=== PATIENT | male | born 1945 | race Caucasian/White ===

== ENCOUNTER 2016-10-26 06:34 | Inpatient (IN) | payer OTHER ==
[2016-10-08 13:36] VITALS: BMI 35.0
--- NOTE | 2016-10-08 14:19 | PAT Medication Instructions ---
Service Date October 08, 2016. Current Home Medication List Aspirin (Aspirin Ec), 81 MG PO QPM Cholecalciferol (Vitamin D3), 1 TAB PO QAM Simvastatin (Zocor), 20 MG PO QPM Terazosin Hcl (Hytrin), 2 MG PO QPM Tramadol (Ultram), 50 MG PO Q8H PRN for Pain [Salpalmeto ], 1 TAB PO BID Medication Instructions For Your Scheduled Surgery - Hold the following medications 2 weeks prior to surgery: Saw [place] 1 TAB PO BID - Hold the following medications the morning of surgery: Cholecalciferol (Vitamin D3), 1 TAB PO QAM - Take the following medications the morning of surgery with a sip of water: Tramadol (Ultram), 50 MG PO Q8H PRN for Pain (can take up to four hours prior to surgery if needed) - Take the following medications as scheduled the night before surgery: Tramadol (Ultram), 50 MG PO Q8H PRN for Pain Simvastatin (Zocor), 20 MG PO QPM Terazosin Hcl (Hytrin), 2 MG PO QPM Aspirin (Aspirin Ec), 81 MG PO QPM If you have any questions please call us at [phone] or [phone] ( Amanda) or [phone]
--- NOTE | 2016-10-08 14:56 | DIAGNOSTIC IMAGING REPORT ---
CHEST PREADMISSION(PA/LAT) CLINICAL HISTORY: Preoperative evaluation. COMPARISON STUDY: No previous studies for comparison. FINDINGS: Lung volumes are normal. Lungs are clear. There is no pneumothorax or pleural effusion. Cardiac size is normal. Mediastinal contours are normal. There is no evidence of pulmonary edema. IMPRESSION: No acute cardiopulmonary findings. Electronically signed by: Ollie Jeffries M.D. 10/08/2016 2:55 PM Dictated Date/Time: 10/08/2016 2:55 PM
[2016-10-08 15:01] LABS: BASO % 0.4 %; BASO ABS # 0.04 K/uL (0-0.2); COMPLETE YES; EOS % 0.4 %; HEMATOCRIT 42.2 % (42-52); IG% 0.2 %; LYMPH % 12.6 %; LYMPH ABS # 1.35 K/uL (1.2-3.4); MEAN CORPUSCULAR HEMOGLOBIN 32.7 pg (25-34); MEAN CORPUSCULAR HGB CONC 34.8 g/dl (32-36); MEAN PLATELET VOLUME 9.3 fL (7.4-10.4); MONO % 3.1 %; NEUT % 83.3 %; PLATELET COUNT 295 K/uL (130-400); RED BLOOD COUNT 4.49 M/uL (4.7-6.1); WHITE BLOOD COUNT 10.74 K/uL (4.8-10.8)
[2016-10-08 15:04] LABS: URINE APPEARANCE CLEAR (CLEAR); URINE BILIRUBIN NEG (NEG); URINE COLOR YELLOW; URINE NITRITE NEG (NEG); URINE SPECIFIC GRAVITY 1.021 (1.000-1.030); UROBILINOGEN NEG (NEG); ZZUR CULT IF INDIC CLEAN CATCH NO
[2016-10-08 15:09] LABS: CREATININE 1.8 mg/dl (0.60-1.40)
[2016-10-08 15:22] LABS: PARTIAL THROMBOPLASTIN RATIO 1.1; PROTHROMBIN TIME (PATIENT) 11.1 SECONDS (9.0-12.0)
[2016-10-08 15:29] LABS: MANUAL MICROSCOPIC REQUIRED? NO; REVIEW REQ? NO
[2016-10-09 06:01] LABS: ESTIMATED AVERAGE GLUCOSE 114 mg/dl; HA1C FLAG Normal (Normal)
--- NOTE | 2016-10-19 10:32 | HISTORY & PHYSICAL EXAMINATION ---
DATE OF ADMISSION: 10/26/2016 SUBJECTIVE CHIEF COMPLAINT: Left knee pain. HISTORY OF PRESENT ILLNESS: The patient is a 71-year-old male who complains of left knee pain that is greater than right knee pain. He states that the pain is described as discomforting, dull and sharp at times. These symptoms have been chronic and nontraumatic in nature. He has difficulty ascending stairs, descending stairs, walking and squatting. He has failed conservative therapies of cortisone injections, nonsteroidal anti-inflammatories and physical therapy. He would like to proceed with a left total knee arthroplasty. PAST MEDICAL HISTORY: Significant for hypertension, hypercholesterolemia, obesity, osteoarthritis, BPH and brain aneurysm. PAST SURGICAL HISTORY: Bilateral carpal tunnel release, bilateral knee arthroscopies, right shoulder rotator cuff repair, left shoulder rotator cuff repair. SOCIAL HISTORY: Denies alcohol use. Denies smoking but does use dip or smokeless tobacco. Denies IV or illegal drug use. He lives in a 1-story house. He is currently retired. FAMILY HISTORY: Noncontributory. ALLERGIES: No known drug allergies. MEDICATIONS: Simvastatin 20 mg once daily, losartan 25 mg once daily, terazosin 2 mg daily. REVIEW OF SYSTEMS: He denies headaches, fevers, chills, double vision, blurry vision, sore throat, cough, chest pain, nausea, vomiting, diarrhea, constipation, numbness, tingling, tired, urinary difficulties, thoughts to harm himself or harm others and depression. He is positive for joint pain and joint stiffness of the left knee. OBJECTIVE: GENERAL APPEARANCE: The patient is a 70-year-old male that is sitting in no acute distress. He is well dressed, well nourished. He is awake, alert and oriented x3. VITAL SIGNS: He is 5 foot 9 inches tall, 245 pounds. Blood pressure is 130/80. HEAD, EYES, EARS, NOSE, AND THROAT: Normocephalic, atraumatic. Extraocular movements are intact. PERRLA. Mucosa was moist. No septal deviation. NECK: Supple with no lymphadenopathy, no JVD, no thyromegaly. HEART: Regular rate and rhythm with no murmurs or gallops. LUNGS: Clear to auscultation. No wheezing or rhonchi. ABDOMEN: Soft, nontender, nondistended. Normal bowel sounds, no hepatosplenomegaly. EXTREMITIES: Paying particular attention to the left lower extremity, he is able to extend his knee actively to 0 degrees and flex his knee to 100 degrees actively. He has medial joint line tenderness. His ligaments are intact. NEUROLOGIC EXAMINATION: Cranial nerves II-XII are intact. Pulses were compared bilaterally and were equal. IMAGING: X-rays of the left knee show bone on bone medial compartment with osteophyte formation of the medial femoral condyle and medial tibial plateau with subchondral sclerotic change. IMPRESSION: Left knee degenerative joint disease. PLAN: The patient is scheduled for a left total knee arthroplasty. He has failed conservative therapies which include cortisone injections, nonsteroidal anti-inflammatories and physical therapy. This affects his activities of daily living and he would like to proceed with a left total knee arthroplasty. Risks and benefits were discussed with the patient and included but not limited to infection, DVT, pain, stiffness, need for revision surgeries, damage to blood vessels, damage to nerves, PE and and anesthesia risks were all discussed with the patient and he wishes to proceed. All questions were answered to his satisfaction. DVT prophylaxis will be aspirin 81 mg b.i.d. On discharge he would like to go home with outpatient physical therapy. His postop appointment is 11/08/2016 at 11:15 a.m. NADIR
[~2016-10-26] VITALS: Ht 175.3 cm; Wt 109.5 kg
[2016-10-26] VITALS (8 sets, daily range): BP systolic 114–166; BP diastolic 57–87; PULSE 47–63; TEMP 36.5–36.8; O2SAT 93–100; Ht 175.3 cm; Wt 109.5 kg
[2016-10-26] MEDS: TRANEXAMIC ACID INJ 1,000 MG in SODIUM CHLORIDE 0.9% 100ML 100 ML IV SCH ×2 (06:30→08:18)
[~2016-10-26 06:34] MED LIST: ACETAMINOPHEN 500 MG TAB PO SCH; ASPI81TA28 PO; CEFAZOLIN 2000 MG/60 ML D5W 60 ML IV SCH; CeleBREX 200 MG CAP PO SCH; DEXAMETHASONE 4 MG TAB PO SCH; FAMOTIDINE 20 MG TAB PO SCH; GABAPENTIN 300 MG CAP PO SCH; HYT/2 PO; LACTATED RINGER'S 1000ML 1,000 ML IV SCH; METOCLOPRAMIDE HCL 10 MG TAB PO SCH; ROPIVACAINE 5MG/ML 30 ML 150 MG, BUPIVACAINE/EPINEPHR 0.5% MPF 30 ML, KETOROLAC TROMETH... INFIL SCH; SAW PALMETTO PO; SIMV20TA2 PO; TRAM-10 PO; VTMD1000 PO
--- NOTE | 2016-10-26 06:34 | History & Physical Bridge Note ---
H&P Re-Evaluation Bridge Note: I have examined the patient, reviewed the History & Physical and in the interval since the performance of the History & Physical I have noted the following changes of clinical significance: No changes noted
[2016-10-26] MEDS ORDERED: PROPOFOL IV EMULSION 10 MG/ML 20 ML VIAL IV ONE (07:31)
[2016-10-26] MEDS ORDERED: ONDANSETRON INJ 2 MG/ML 2 ML VIAL ONE (07:31)
[2016-10-26] MEDS ORDERED: FENTANYL CITRATE INJ 50 MCG/1 ML 2 ML VIAL ONE (07:32)
[2016-10-26] MEDS ORDERED: MIDAZOLAM HCL 1 MG/ML 2ML VIAL ONE (07:32)
[2016-10-26] MEDS ORDERED: BUPIVACAINE 0.5 % 5 MG/1 ML MPF 30ML VIAL ONE (07:42)
[2016-10-26] MEDS ORDERED: LIDOCAINE/EPINEPHRINE 1% 20 ML VIAL ONE (07:42)
[2016-10-26] MEDS ORDERED: ORTHO JOINT ANESTHETIC ONE (07:44)
[2016-10-26] MEDS ORDERED: BACITRACIN 50000 UNIT VIAL ONE (07:45)
[2016-10-26] MEDS ORDERED: POVIDONE-IODINE OP SOLN 30 ML BTL ONE (07:45)
[2016-10-26] MEDS ORDERED: BUPIVACAINE 0.25% 30 ML VIAL ONE (07:47)
[2016-10-26] MEDS ORDERED: BUPIVACAINE 0.5 % 5 MG/1 ML PF 10ML VIAL ONE (07:47)
[2016-10-26] MEDS ORDERED: LACTATED RINGER'S 1000ML 1,000 ML IV PRN (08:17)
[2016-10-26] MEDS ORDERED: ONDANSETRON INJ 2 MG/ML 2 ML VIAL IV PRN ×2 (08:30→10:45)
[2016-10-26] MEDS ORDERED: FENTANYL CITRATE INJ 50 MCG/1 ML 2 ML VIAL IV PRN (08:30)
--- NOTE | 2016-10-26 10:09 | [facility] Post Operative Brief Note ---
Immediate Operative Summary Operative Date Oct 26, 2016. Pre-Operative Diagnosis Left knee degenerative joint disease Post-Operative Diagnosis Left knee degenerative joint disease Procedure(s) Performed Left Total Knee Arthroplasty Surgeon Dr. Bismark Aguero Cleaning Staff Supervisor Surgeon(s) Andrez Celestin PA-C Estimated Blood Loss 20mL Findings above Specimens Specimen A. Left knee bone and tissue Drains 2 hemovac Anesthesia spinal Complication(s) None Disposition Recovery Room / PACU
[2016-10-26] MEDS ORDERED: BISACODYL 10 MG SUPP PR PRN (10:45)
[2016-10-26] MEDS ORDERED: OXYCODONE HCL IR 5 MG TAB (IMMEDIATE RELEASE) PO PRN (10:45)
[2016-10-26] MEDS ORDERED: KETOROLAC TROMETHAMINE 30 MG/ML VIAL IV. SCH (10:45)
[2016-10-26] MEDS ORDERED: MoRPHine SULFATE 2 MG/ML CARP IV PRN ×2 (10:45→12:30)
[2016-10-26] MEDS ORDERED: ALUMINUM/MAGNESIUM/SIMETH (MAALOX MAX) 30 ML UDC PO PRN (10:45)
[2016-10-26] MEDS ORDERED: MAGNESIUM HYDROXIDE SUSP 30 ML UDC PO PRN (10:45)
--- NOTE | 2016-10-26 11:12 | DIAGNOSTIC IMAGING REPORT ---
LEFT KNEE 1 OR 2 VIEWS ROUTINE CLINICAL HISTORY: Total left knee arthroplasty. COMPARISON: None FINDINGS: Alignment of the total left knee arthroplasty is anatomic. There is no fracture or unexpected radiopaque foreign body. Drains and skin valerie are present. IMPRESSION: Expected findings following total left knee arthroplasty. Electronically signed by: Ollie Jeffries M.D. 10/26/2016 11:11 AM Dictated Date/Time: 10/26/2016 11:10 AM
--- NOTE | 2016-10-26 11:40 | Anesthesiology Progress Note ---
Anesthesia Post Op Note Date & Time Oct 26, 2016 at 11:40 Vital Signs Pain Intensity: 0 Vital Signs Past 12 Hours Date Time Temp Pulse Resp B/P (MAP) Pulse Ox O2 Delivery O2 Flow Rate FiO2 10/26/16 11:35 36.8 44 16 137/82 98 Nasal Cannula 2 10/26/16 11:25 36.8 55 16 140/75 98 Nasal Cannula 2 10/26/16 11:15 43 16 125/73 98 Nasal Cannula 2 10/26/16 11:05 43 16 132/77 100 Nasal Cannula 2 10/26/16 10:55 44 16 124/75 100 Nasal Cannula 2 10/26/16 10:45 45 16 133/65 100 Nasal Cannula 2 10/26/16 10:36 36.4 48 16 121/71 98 Mask 10 10/26/16 07:14 36.5 50 18 122/87 95 Room Air Notes Mental Status: alert / awake / arousable, participated in evaluation Pt Amnestic to Procedure: Yes Nausea / Vomiting: adequately controlled Pain: adequately controlled Airway Patency, RR, SpO2: stable & adequate BP & HR: stable & adequate Hydration State: stable & adequate Neuraxial Anesthesia: was administered, sensory block is resolving Anesthetic Complications: no major complications apparent
[2016-10-26] MEDS ORDERED: MoRPHine SULFATE 10 MG/ML CARP/VIAL IV PRN (12:30)
[2016-10-26] MEDS ORDERED: MoRPHine SULFATE 4 MG/ML 1 ML CARP\\VIAL IV PRN (12:30)
[2016-10-26] MEDS: D5W AND 1/2NSS + 20MEQ KCL 1,000 ML IV SCH (13:42)
[2016-10-26] MEDS: FERROUS GLUCONATE 324 MG TAB PO SCH ×2 (13:42→17:45)
[2016-10-26] MEDS: ACETAMINOPHEN 500 MG TAB PO SCH ×2 (13:43→21:27)
[2016-10-26] MEDS: CEFAZOLIN IV 2,000 MG in DEXTROSE 5% 50ML 50 ML IV SCH ×2 (16:27→23:39)
[2016-10-26] MEDS: DOCUSATE SODIUM 100 MG CAP PO SCH (20:15)
[2016-10-26] MEDS: ASPIRIN 81 MG ECTAB PO SCH (20:16)
[2016-10-26] MEDS: OXYCODONE HCL 10 MG TABCR (OXYCONTIN) PO SCH (20:19)
[2016-10-26] MEDS ORDERED: SIMVASTATIN 20 MG TAB PO SCH (21:00)
[2016-10-26] MEDS ORDERED: SENNA 8.6 MG TAB PO SCH (21:00)
[2016-10-27] VITALS: O2SAT 95
[2016-10-27] MEDS: D5W AND 1/2NSS + 20MEQ KCL 1,000 ML IV SCH ×2 (01:30→09:00)
--- NOTE | 2016-10-27 03:54 | OPERATIVE REPORT ---
DATE OF OPERATION: 10/26/2016 PREOPERATIVE DIAGNOSIS: Left knee degenerative joint disease. POSTOPERATIVE DIAGNOSIS: Same. PROCEDURE: Left total knee arthroplasty. SURGEON: Bismark Aguero MD MANAGER PRINT: Andrez Celestin PA-C who was necessary for assistance of the procedure with positioning, prepping, draping, retraction and closure. ANESTHESIA: Spinal with adductor canal block. SPECIMEN: Bone and tissue. IMPLANTS: [employer] Journey version 2, femur 6, tibia 5, poly 10, patella 38 oval. COMPLICATIONS: None. ESTIMATED BLOOD LOSS: 20 mL. DRAINS: One medium Hemovac. INDICATIONS: The patient is a 71-year-old male, with longstanding degenerative joint disease of the left knee. It is bone on bone in the medial compartment. Failing conservative measures, he wished to proceed with left total knee arthroplasty. Risks, benefits and alternatives of surgery including but not limited to infection, DVT, pain need for revision surgery, failure to relieve all symptoms, damage to blood vessels, damage to nerves, risks of anesthesia were discussed with the patient and he wished to proceed. DESCRIPTION OF PROCEDURE: The patient was identified, laterality was confirmed and marked. He received a preoperative antibiotic as well as a spinal and adductor canal block. The limb was prepped and draped in usual sterile manner with ChloraPrep after a well-padded tourniquet was applied. The limb was exsanguinated and tourniquet was inflated. I made a longitudinal incision to the anterior aspect of the knee, sharply incising the skin and utilizing Bovie electrocautery to achieve hemostasis. I made a medial parapatellar arthrotomy, mobilized the patella laterally and then excised the anterior horns of the medial and lateral meniscus and the inferior patellar fat pad. I then pinned into place a patient matched distal femoral cutting guide, made my distal femoral resection and then pinned into place a size 6, 5-in-1 cutting guide, made my anterior, posterior and chamfer cuts. I then removed the remaining menisci and cruciates and I pinned placed a patient matched tibial guide, made my tibial resection, sized in pins were a size 5 tibia and then cut for the post. I placed trial femur into position, reamed for the trochlear component and I then sequentially trialed up to a size 10 poly. We had good range of motion and good soft tissue balancing with the size 10 poly. I then cut the patella with a freehand cut and then sized and drilled for a 38 oval patella. We had good tracking of the patella. No lateral release was needed. All the wounds were thoroughly irrigated. Trial components were removed. Soft tissues were anesthetized with an Orthomix solution, then with Simplex HV gent cement, cemented my definitive components. This was Pae[employer]hew Journey version 2, femur 6, tibia 5, poly 10, patella 38 oval. A deep drain was placed. The arthrotomy was closed with interrupted #1 Vicryl sutures, subcutaneous tissue with interrupted 2-0 Vicryl suture and skin with valerie. Sterile dressing was applied. All needle and sponge counts were correct at the end of the procedure. The patient was transferred to the PACU in stable condition without apparent complication. I attest to the content of the Intraoperative Record and any orders documented therein. Any exceptions are noted below. NADIR
[2016-10-27 04:04] VITALS: BP 128/80; PULSE 57; TEMP 36.5; O2SAT 95
[2016-10-27] MEDS: ACETAMINOPHEN 500 MG TAB PO SCH ×2 (05:48→13:49)
[2016-10-27 07:08] LABS: HEMATOCRIT 35.2 % (42-52); MEAN CELL VOLUME 94.6 fL (80-100); MEAN CORPUSCULAR HEMOGLOBIN 32.3 pg (25-34); MEAN CORPUSCULAR HGB CONC 34.1 g/dl (32-36); MEAN PLATELET VOLUME 9.5 fL (7.4-10.4); PLATELET COUNT 226 K/uL (130-400); RED BLOOD COUNT 3.72 M/uL (4.7-6.1); WHITE BLOOD COUNT 20.07 K/uL (4.8-10.8)
[2016-10-27 07:30] VITALS: BP 133/84; PULSE 45; TEMP 36.6; O2SAT 96
[2016-10-27 07:39] LABS: BUN/CREATININE RATIO 13.6 (10-20); CALCIUM 9.2 mg/dl (8.5-10.1); POTASSIUM 4.3 mmol/L (3.5-5.1)
[2016-10-27] MEDS: OXYCODONE HCL 10 MG TABCR (OXYCONTIN) PO SCH (09:00)
[2016-10-27] MEDS ORDERED: MULTIVITAMIN TAB PO SCH (09:00)
[2016-10-27] MEDS ORDERED: CHOLECALCIFEROL 1000 INTER.UNIT TAB PO SCH (09:00)
[2016-10-27] MEDS ORDERED: PANTOprazole SOD 40 MG TAB PO SCH (09:00)
[2016-10-27] MEDS: DOCUSATE SODIUM 100 MG CAP PO SCH (09:13)
[2016-10-27] MEDS: ASPIRIN 81 MG ECTAB PO SCH (09:14)
[2016-10-27] MEDS: FERROUS GLUCONATE 324 MG TAB PO SCH ×2 (09:14→12:07)
--- NOTE | 2016-10-27 11:10 | Orthopedic Progress Note ---
Orthopedic Progress Note Date of Service Oct 27, 2016. Subjective Post OP Day: 1 Reports: feeling well, pain controlled w PO medications, Denies: complaints, chest pain, SOB, nausea / vomiting, light headedness, calf pain Additional Notes: drain out 150cc's BUN/Cr elevated Objective calves soft nontender, N/V intact, capillary refill less than 2 sec., dressing C /D/I, A&O x3, toes mobile Date Time Temp Pulse Resp B/P (MAP) Pulse Ox O2 Delivery O2 Flow Rate FiO2 10/27/16 07:30 36.6 45 16 133/84 (100) 96 Room Air 10/27/16 04:04 36.5 57 16 128/80 (96) 95 Room Air 10/27/16 00:00 95 Room Air 10/26/16 23:09 36.6 47 16 136/75 (95) 96 Room Air 10/26/16 19:53 36.5 55 16 166/69 (101) 97 Room Air 10/26/16 15:00 36.5 48 16 132/69 (90) 94 Room Air 10/26/16 14:00 36.5 63 18 132/83 (99) 93 Room Air 10/26/16 13:00 54 16 114/57 (76) 97 10/26/16 12:31 36.5 50 16 123/71 (88) 100 Nasal Cannula 2.0 10/26/16 12:00 Nasal Cannula 2.0 10/26/16 12:00 36.8 50 18 119/73 (88) 95 Nasal Cannula 2.0 10/26/16 12:00 Nasal Cannula 2.0 10/26/16 11:45 49 19 132/78 95 Nasal Cannula 2 10/26/16 11:35 36.8 44 16 137/82 98 Nasal Cannula 2 10/26/16 11:25 36.8 55 16 140/75 98 Nasal Cannula 2 10/26/16 11:15 43 16 125/73 98 Nasal Cannula 2 Laboratory Results 24 Hours: Test 10/27/16 06:35 Hematocrit 35.2 % Hemoglobin 12.0 g/dL Assessment & Plan Assessment: POD #1, Left TKA Elevated kidney function, poss chronic. Plan: PT/ OT DVT proph- ASA D/C planning- HOme w OPPT when stable Inhouse Planning Pain Management: Oxycontin, Morphine, PO Tylenol, Oxy IR DVT Prophylaxis: TEDs, SCDs, ASA Discharge Planning Discharge Planning: home with oppt Pain Management: Oxycontin, PO Tylenol, Oxy IR DVT Prophylaxis: TEDs, ASA Therapy: Physical Therapy, Occupational Therapy
[2016-10-27] MEDS ORDERED: ACET-1138 PO (11:17)
[2016-10-27] MEDS ORDERED: RXC5 PO (11:17)
[2016-10-27] MEDS ORDERED: ASPEC81 PO (11:17)
[2016-10-27] MEDS ORDERED: OXYSR10 PO (11:17)
[2016-10-27] MEDS ORDERED: ONDA8TAB6 PO (11:18)
--- NOTE | 2016-10-27 11:19 | Discharge Instructions ---
Discharge Instructions Date of Service Oct 27, 2016. Admission Reason for Admission: Unilateral Primary Osteoarthritis Left Knee Discharge Discharge Diagnosis / Problem: LEFT TKA Discharge Goals Goal(s): Improve function Activity Recommendations Activity Limitations: as noted below . Instructions / Follow-Up Instructions / Follow-Up ACTIVITY RECOMMENDATIONS: SELF CARE INSTRUCTIONS AFTER TOTAL KNEE REPLACEMENT A. You may need to continue a physical therapy program after discharge from the hospital. There are several options available to you. Your doctor will assist you in selecting the best one for you. 1. An out-patient facility 2 to 3 times a week for therapy or home therapy. 2. Continue working on all exercises taught to you in the hospital. Your goals should be to increase bending of your knee to 90 degrees and beyond and to fully straighten your knee. B. You may progress at your own pace from walking with a walker or crutches to a cane; then to no assistive devices. C. Make walking a part of your daily routine. Be up as much as comfortable with rest periods throughout the day. Rest with leg elevation is very important. Use the ice wrap frequently for the first 3-4 weeks. D. There are no restrictions on activities. You may ride in a car, shop, participate in industrial paramedic and all social activities. E. Wear the long elastic stockings (RHINA hose) 20 hours a day for 2 weeks after surgery. They can be removed several times a day for laundering and for a bath. F. You may shower, no tub baths until cleared by your doctor. SPECIAL CARE INSTRUCTIONS: VERY IMPORTANT TO READ AND REVIEW A. There are a few signs you need to watch for after you are home. Call [facility] if you notice any of the followin. Increased severe knee pain. Some pain is expected especially when you exercise. 2. Increased swelling in your leg or knee; pain or swelling of the calf muscle in either lower leg. 3. Any fluid drainage from the incision. 4. Shortness of breath or chest pain. B. Please call [facility] at if you have any concerns or questions about your operation or recovery. The doctor or his nurse will return your call promptly. C. You must take antibiotics before dental work, bladder, bowel or other surgery. Your doctor will provide you with a permanent care to carry describing this precaution. IMPORTANT: * REMEMBER TO TAKE ASPIRIN, 81 MG, TWICE DAILY FOR 4 WEEKS UNLESS OTHERWISE DIRECTED. THIS IS YOUR BLOOD THINNER. * HIGH RISK PATIENTS MAY BE PRESCRIBED A STRONGER BLOOD THINNER. THIS WILL BE PROVIDED AT DISCHARGE. * CALL IF INCREASED PAIN, REDNESS, DRAINAGE OR FEVER GREATER THAT 101. * WEAR RHINA HOSE 20 HOURS PER DAY FOR 2 WEEKS. * YOU MAY HAVE A LARGE BAND-AID LIKE DRESSING (SILVERON). THIS WILL REMAIN ON YOUR INCISION FOR 7 DAYS, THEN CAN BE REMOVED. IF INCISION IS LEAKING THROUGH DRESSING, CALL THE OFFICE . FOLLOW UP VISIT: If appointment is not already scheduled: Please call [facility] to make a follow-up appointment for 2 weeks after your surgery at . Current Hospital Diet Patient's current hospital diet: Regular Diet Discharge Diet Recommended Diet: Regular Diet Procedures Procedures Performed: Left Total Knee Arthroplasty Pending Studies Studies pending at discharge: no Laboratory Results Hemoglobin A1c Test 10/08/16 14:25 Range/Units Estimated Average Glucose 114 mg/dl Hemoglobin A1c 5.6 4.5-5.6 % Medical Emergencies . Who to Call and When: Medical Emergencies: If at any time you feel your situation is an emergency, please call 911 immediately. . Non-Emergent Contact Non-Emergency issues call your: Primary Care Provider . "Provider Documentation" section prepared by Karthik Bell. . VTE Core Measure Inpt VTE Proph given/why not?: Other Anticoagulation (ASA), T.E.D. Stockings, SCD's [place] Drug Monitoring Program Search Results: patient reviewed within database, no issues identified
[2016-10-27 12:05] VITALS: BP 132/75; PULSE 56; TEMP 36.4; O2SAT 94
[2016-10-27 15:21] VITALS: BP 132/75; PULSE 56; TEMP 36.4; O2SAT 94
--- NOTE | 2016-10-29 16:58 | DISCHARGE SUMMARY ---
DISCHARGE DIAGNOSIS: Degenerative joint disease, left knee. SECONDARY DIAGNOSES: Hypertension, hypercholesterolemia, obesity, osteoarthritis, benign prostatic hypertrophy, and history of brain aneurysm in the past. CONSULTS: None. COMPLICATIONS: None. PROCEDURES: Left total knee arthroplasty performed by Dr. Aguero on 10/26/2016. BRIEF HISTORY: As dictated in the history and physical. HOSPITAL SUMMARY: The patient was admitted on the above-noted date and had the above-noted surgery performed which he tolerated well. On his first postoperative day; he was feeling well, pain was controlled and he had no complaints. His drain had been taken out. BUN and creatinine were slightly elevated. Calves were soft and nontender. Neurovascularly intact. Cap refill was less than 2 seconds. Dressings were clean, dry and intact. Toes were mobile. Vital signs were stable. He was afebrile. Hemoglobin was 12.0 and BUN was 27 and creatinine was 2.00, and preoperatively these were 27 and 1.8 respectively. He was started on physical therapy protocol and continued on DVT prophylaxis and pain management, and plans were to continue his PT and if he was progressing well, to discharge to home. He was otherwise remaining stable. By the end of 10/27/2016, he was progressing well with his physical therapy and it was felt he could be discharged to home. For further review, please see chart. LAB AND X-RAY DATA: As per chart. DISCHARGE INSTRUCTIONS: The patient was discharged to home in satisfactory condition on 10/27/2016. DIET: Regular. ACTIVITY: Follow TK instruction sheets and special care instructions as noted. Follow up with Dr. Aguero in 2 weeks. The patient to call for appointment if one has not been made for you. DISCHARGE MEDICATIONS: New prescriptions; acetaminophen 1000 mg p.o. q. 8 hours, aspirin 81 mg p.o. b.i.d., Zofran 8 mg p.o. q. 8 hours p.r.n., OxyContin 10 mg p.o. q. 12 hours, oxycodone 5-10 mg p.o. q. 4 hours p.r.n., resume vitamin D3 one tab p.o. q.a.m., simvastatin 20 mg p.o. q.p.m., terazosin 2 mg p.o. q.p.m. and SawPalmetto 1 tab p.o. b.i.d., stop taking tramadol; and after 30 days, please resume once daily dosing of aspirin. MTDD
--- NOTE | 2016-11-01 08:10 | EDITING REQUIRED CODING QUERY ---
SUPPORTING DIAGNOSIS NEEDED A supporting diagnosis is required for the test/procedure performed on this patient in order for us to be reimbursed by the patient's insurance. Please provide a supporting diagnosis for the following test/procedure listed below next to the test name along with your signature. *If there is no additional diagnosis for this patient that would support the following test/procedure please document that below next to the test/procedure. Test(s)/Procedure(s) that require a supporting diagnosis: This was not done during the patient's admission. It was pre-op screening for clearance and risk assessment. * HEMOGLOBIN A1C DIAGNOSIS: Provider Signature: Date: Thank you Arielle Gaffney [employer] Management Once completed, please kindly fax back to [phone] For questions please call [phone]
== END 2016-10-27 15:31 | disposition home or self-care (01) | DRG 470 ==
LOC: C.ACU 06:34 → C.MSN 07:15 → ENRESERV 11:17
PROVIDERS: ADMIT Orthopaedic Surgery; ATTEND Orthopaedic Surgery
PROC: 0SRD0J9 Replacement of Left Knee Joint with Synthetic Substitute, Cemented, Open Approach (ICD-10-PCS; principal; 2016-10-26 09:00)
DX: M17.12 Unilateral primary osteoarthritis, left knee (principal); I10 Essential (primary) hypertension; E78.5 Hyperlipidemia, unspecified; E66.9 Obesity, unspecified; N40.0 Benign prostatic hyperplasia without lower urinary tract symptoms; Z68.35 Body mass index [BMI] 35.0-35.9, adult